=== PATIENT | female | born 1960 | race Caucasian/White ===

== ENCOUNTER 2018-06-04 06:58 | Day surgery (SDC) | payer OTHER ==
[~2018-06-04] VITALS: Ht 168.9 cm; Wt 73.9 kg
[~2018-06-04 06:58] MED LIST: ALEN1TAB32 PO; AMI25T PO; ASPI1TAB19 PO; CARV12.544 PO; CHOL20007 OR; CLOP75TA41 PO; DEXL60CA3 PO; FENO54TA4 PO; FURO20TA3 PO; GABA300C10 PO; LISI10TA6 PO; MAGN400T5 PO; POTA10TA51 PO; SIMV-13 PO
[2018-06-04] MEDS ORDERED: ANGIOMAX 250 MG VIAL IV ONE (07:47)
[2018-06-04] MEDS ORDERED: fentaNYL CITRATE 100 MCG/2 ML VL ONE (07:48)
[2018-06-04] MEDS ORDERED: VERAPAMIL 2.5MG/ML INJ 2ML VIAL IV ONE (07:48)
[2018-06-04] MEDS ORDERED: SODIUM CHL 0.9% 0 ML ONE (07:48)
[2018-06-04] MEDS ORDERED: MIDAZOLAM HCL 1MG/1ML-2 ML VIAL ONE (07:48)
[2018-06-04] MEDS ORDERED: LIDOCAINE 2%HCL (LOCAL ANESTH.) INJ 20ML MDV ONE (07:48)
[2018-06-04] MEDS ORDERED: IODIXANOL 320MG/ML 100ML BTL IV ONE ×2 (07:48→08:10)
[2018-06-04] MEDS ORDERED: HEPARIN SODIUM (PORCINE) 5000 UNITS/ML 1ML VIAL ONE (08:21)
[2018-06-04] MEDS ORDERED: SODIUM CHLORIDE 0.9% 1,000 ML IV SCH (09:04)
== END 2018-06-04 10:35 | disposition home or self-care (01) ==
LOC: CATH 06:58
PROVIDERS: ATTEND Internal Medicine
DX: I25.10 Atherosclerotic heart disease of native coronary artery without angina pectoris (principal); E78.00 Pure hypercholesterolemia, unspecified; I25.2 Old myocardial infarction; I73.9 Peripheral vascular disease, unspecified; I11.0 Hypertensive heart disease with heart failure; I50.9 Heart failure, unspecified; Z79.82 Long term (current) use of aspirin; Z79.899 Other long term (current) drug therapy; Z98.890 Other specified postprocedural states; Z87.891 Personal history of nicotine dependence; Z95.810 Presence of automatic (implantable) cardiac defibrillator
CPT/HCPCS: 75630; 93458; A6257; C1769; C1894; J1644; J2250; J3010; J7030; Q9967; 36200; 99152

== ENCOUNTER 2022-03-14 17:12 | Inpatient (IN) | payer OTHER ==
[~2022-03-14] VITALS: Ht 30.5 cm; Wt 70.5 kg
[~2022-03-14 17:12] MED LIST changes: -ALEN1TAB32 PO; +ALEN70TA74 PO; -AMI25T PO; +AMIT1TAB35 PO; -CLOP75TA41 PO; +CLOP75TA70 PO; -DEXL60CA3 PO; +DEXL60CA4 PO; +LISI-716 PO; -LISI10TA6 PO; +MAGN400T40 PO; -MAGN400T5 PO
[2022-03-14 21:50] VITALS: BP 118/65
[2022-03-14] MEDS ORDERED: DOCUSATE SOD 100 MG CAP PO PRN (22:45)
[2022-03-14] MEDS ORDERED: MORPHINE SULFATE INJ 2 MG/ml SYRG IV PRN ×3 (22:45→23:30)
[2022-03-14] MEDS ORDERED: ACETAMINOPHEN 325 MG TAB PO PRN (22:45)
[2022-03-14] MEDS ORDERED: NITROGLYCERIN 0.4 MG SL TAB SL PRN ×2 (22:45→23:30)
[2022-03-14] MEDS ORDERED: ONDANSETRON HCL 4 MG/2 ML VIAL IV PRN (22:45)
[2022-03-15] VITALS (8 sets, daily range): BP systolic 97–115; BP diastolic 53–67
[2022-03-15] MEDS ORDERED: ALBUTEROL MEDNEB 2.5 mg/3ml NEB ONE ×4 (00:30→17:57)
[2022-03-15] MEDS: ALBUTEROL SULF 2.5 MG/0.5ML(0.5%) NEB SOLN NEB SCH ×4 (00:49→18:45)
[2022-03-15] MEDS: IPRATROPIUM BROM 0.5 MG/2.5ML INH SOL NEB SCH ×4 (00:49→18:45)
[2022-03-15] MEDS ORDERED: FURO1TAB31 PO (02:04)
[2022-03-15] MEDS ORDERED: EZET10TA22 PO (02:07)
[2022-03-15] MEDS ORDERED: ATOR-47 PO (02:08)
[2022-03-15] MEDS ORDERED: SACU1TAB PO (02:09)
[2022-03-15] MEDS ORDERED: PANT1INJ3 IV (02:11)
[2022-03-15] MEDS ORDERED: ALEN70TA74 PO (02:18)
[2022-03-15] MEDS ORDERED: CHOL25CH3 BC (02:18)
[2022-03-15] MEDS ORDERED: FERR-7 PO (02:18)
[2022-03-15] MEDS ORDERED: PEN400T PO (02:22)
[2022-03-15] MEDS ORDERED: DOCU100T15 PO (02:23)
[2022-03-15 05:20] LABS: Basophils # (auto) 0 10 ^3/uL (0-0.2); Eosinophils # (auto) 0.1 10 ^3/uL (0-0.8); Lymphocytes # (auto) 0.8 10 ^3/uL (0.4-5.4); Monocytes # (auto) 0.4 10 ^3/uL (0-1.3); Neutrophils # (auto) 2.7 10 ^3/uL (1.6-8.6); Nucleated Red Blood Cells % 0.1 %
[2022-03-15 05:23] LABS: Basophils % (auto) 0.4 % (0.0-2.0); Eosinophils % (auto) 1.6 % (0.0-7.0); Hematocrit 35.2 % (36.0-46.0); Hemoglobin 11.1 g/dL (12.2-16.2); Lymphocytes % (auto) 20.6 % (10.0-50.0); Mean Corpuscular Hemoglobin 28.8 pg (28.0-32.0); Mean Corpuscular Hgb Conc. 31.4 g/dL (32.0-36.0); Mean Corpuscular Volume 91.5 fL (80.0-100.0); Monocytes % (auto) 9.3 % (0.0-12.0); Neutrophils % (auto) 68.1 % (37.0-80.0); Red Blood Cells 3.84 10^6/uL (4.0-5.20); Red Cell Distribution Width 17.6 % (11.8-14.3); White Blood Cell 3.9 10^3/uL (4.4-10.8)
[2022-03-15 05:36] LABS: BUN/Creatinine Ratio 5.6; Calcium 8.7 mg/dL (8.5-10.1); Potassium 4.4 mmol/L (3.5-5.1)
[2022-03-15] MEDS: FUROSEMIDE 40 MG/4 ML VIAL IV SCH ×2 (06:06→17:06)
[2022-03-15] MEDS: ASPirin 81 mg TAB PO SCH (09:57)
[2022-03-15] MEDS: POTASSIUM CHL 20 Meq TABLET PO SCH ×2 (09:57→22:01)
[2022-03-15] MEDS: PANTOPRAZOLE 40 MG/10 ML VIAL INJ IV SCH (09:57)
[2022-03-15] MEDS: HEPARIN SODIUM (PORCINE) 5000 UNITS/ML 1ML VIAL SC SCH ×2 (10:00→22:05)
[2022-03-15] MEDS: HYDROcodone-ACET 5/325MG TAB PO PRN ×2 (10:09→17:06)
[2022-03-15] MEDS ORDERED: ATORVASTATIN 20 MG TAB PO SCH (22:00)
[2022-03-15] MEDS: CARVEDILOL 12.5 MG TAB PO SCH (22:00)
[2022-03-15] MEDS: SACUBITRIL-VALSARTAN 24mg/26mg TAB PO SCH (22:01)
[2022-03-16] MEDS: IPRATROPIUM BROM 0.5 MG/2.5ML INH SOL NEB SCH ×3 (00:57→11:59)
[2022-03-16] MEDS: ALBUTEROL SULF 2.5 MG/0.5ML(0.5%) NEB SOLN NEB SCH ×3 (00:57→11:59)
[2022-03-16 04:49] VITALS: BP 117/64
[2022-03-16] MEDS: FUROSEMIDE 40 MG/4 ML VIAL IV SCH (05:40)
[2022-03-16] MEDS ORDERED: ALBUTEROL MEDNEB 2.5 mg/3ml NEB ONE ×3 (05:52→11:53)
[2022-03-16 07:02] LABS: Anion Gap 9 (5-15); Blood Urea Nitrogen 8 mg/dL (7-18); Calcium 8.6 mg/dL (8.5-10.1); Carbon Dioxide 28 mmol/L (21-32); Chloride 105 mmol/L (98-107); Glucose 72 mg/dL (74-106); Potassium 4.2 mmol/L (3.5-5.1); Sodium 142 mmol/L (136-145)
[2022-03-16 07:05] LABS: BUN/Creatinine Ratio 8.2; GFR African American 75 mL/min; GFR Non-African American 62 mL/min
[2022-03-16 08:57] LABS: Basophils # (auto) 0 10 ^3/uL (0-0.2); Basophils % (auto) 0.5 % (0.0-2.0); Eosinophils # (auto) 0.1 10 ^3/uL (0-0.8); Lymphocytes # (auto) 0.7 10 ^3/uL (0.4-5.4); Monocytes # (auto) 0.3 10 ^3/uL (0-1.3); Neutrophils # (auto) 3.1 10 ^3/uL (1.6-8.6)
[2022-03-16 08:58] VITALS: BP 122/50
[2022-03-16 08:59] LABS: Eosinophils % (auto) 2.1 % (0.0-7.0); Hematocrit 35.9 % (36.0-46.0); Mean Corpuscular Hemoglobin 28.3 pg (28.0-32.0); Mean Corpuscular Hgb Conc. 30.9 g/dL (32.0-36.0); Mean Corpuscular Volume 91.6 fL (80.0-100.0); Monocytes % (auto) 7.2 % (0.0-12.0); Neutrophils % (auto) 74.2 % (37.0-80.0); Nucleated Red Blood Cells % 0.1 %; Red Blood Cells 3.92 10^6/uL (4.0-5.20); Red Cell Distribution Width 17.6 % (11.8-14.3)
[2022-03-16 09:05] LABS: Hemoglobin 11.1 g/dL (12.2-16.2); White Blood Cell 4.1 10^3/uL (4.4-10.8)
[2022-03-16] MEDS: SACUBITRIL-VALSARTAN 24mg/26mg TAB PO SCH (10:21)
[2022-03-16] MEDS: CARVEDILOL 12.5 MG TAB PO SCH (10:21)
[2022-03-16] MEDS: ASPirin 81 mg TAB PO SCH (10:21)
[2022-03-16] MEDS: POTASSIUM CHL 20 Meq TABLET PO SCH (10:22)
[2022-03-16] MEDS: PANTOPRAZOLE 40 MG/10 ML VIAL INJ IV SCH (10:22)
[2022-03-16] MEDS: HEPARIN SODIUM (PORCINE) 5000 UNITS/ML 1ML VIAL SC SCH (10:27)
[2022-03-16 13:42] VITALS: BP 114/50
[2022-03-16 16:08] VITALS: BP 114/50
[2022-03-16 16:30] VITALS: BP 122/49
== END 2022-03-16 17:00 | disposition home health service (06) | DRG 291 ==
LOC: TELE-WESTW 20:58
PROVIDERS: ADMIT Registered Nurse; ATTEND Internal Medicine
DX: I13.0 Hypertensive heart and chronic kidney disease with heart failure and stage 1 through stage 4 chronic kidney disease, or unspecified chronic kidney disease (principal); I50.23 Acute on chronic systolic (congestive) heart failure; J96.11 Chronic respiratory failure with hypoxia; I25.5 Ischemic cardiomyopathy; D64.9 Anemia, unspecified; Z20.822 Contact with and (suspected) exposure to COVID-19; N18.9 Chronic kidney disease, unspecified; I25.10 Atherosclerotic heart disease of native coronary artery without angina pectoris; I27.29 Other secondary pulmonary hypertension; I73.9 Peripheral vascular disease, unspecified; M79.89 Other specified soft tissue disorders; Z79.02 Long term (current) use of antithrombotics/antiplatelets; Z79.82 Long term (current) use of aspirin; Z85.038 Personal history of other malignant neoplasm of large intestine; Z87.442 Personal history of urinary calculi; Z87.891 Personal history of nicotine dependence; Z90.49 Acquired absence of other specified parts of digestive tract; Z95.810 Presence of automatic (implantable) cardiac defibrillator; Z99.81 Dependence on supplemental oxygen; Z79.899 Other long term (current) drug therapy
CPT/HCPCS: 36415; 80048; 85025; 87426; 93306; 94640; 97116; 97163; C9113; G0378